=== PATIENT | female | born 1960 | race American Indian/Alaskan Native ===

== ENCOUNTER 2022-10-30 12:52 | Emergency (ER) | payer OTHER ==
[~2022-10-30] VITALS: Ht 162.6 cm; Wt 84.0 kg
[~2022-10-30 12:52] MED LIST: BENA-8 PO; GABA-532 PO; METF-414 PO; OMEP20CA14 PO
[2022-10-30 13:07] VITALS: BP 145/72
== END 2022-10-30 14:47 | disposition home or self-care (01) ==
LOC: ER 12:52
DX: M79.662 Pain in left lower leg (principal)
CPT/HCPCS: 93971; 99284

== ENCOUNTER 2024-05-05 11:17 | Emergency (ER) | payer OTHER ==
[~2024-05-05] VITALS: Ht 162.6 cm; Wt 84.8 kg
[2024-05-05 11:22] VITALS: O2SAT 99
[2024-05-05] MEDS ORDERED: IBUPROFEN 400MG TABLET PO ONE (15:30)
[2024-05-05] MEDS ORDERED: METH4TAB95 MT (16:23)
[2024-05-05] MEDS: DEXAMETHASONE 4MG TABLET PO ONE (16:59)
[2024-05-05] MEDS: IBUPROFEN 400MG TABLET PO NR (16:59)
[2024-05-05 17:16] VITALS: BP 145/80; PULSE 78; RESP 18; TEMP 36.50292; O2SAT 99
== END 2024-05-05 17:15 | disposition home or self-care (01) ==
LOC: ER 11:17
DX: S44.11XA Injury of median nerve at upper arm level, right arm, initial encounter (principal); E11.9 Type 2 diabetes mellitus without complications; I10 Essential (primary) hypertension; I82.499 Acute embolism and thrombosis of other specified deep vein of unspecified lower extremity; Z98.890 Other specified postprocedural states; W18.39XA Other fall on same level, initial encounter; Y93.89 Activity, other specified; Y92.89 Other specified places as the place of occurrence of the external cause; Y99.8 Other external cause status
CPT/HCPCS: 99283; 73030; J8540